=== PATIENT | male | born 1960 | race American Indian/Alaskan Native ===

== ENCOUNTER 2017-09-06 08:00 | Day surgery (SDC) | payer MEDICAID ==
[2017-09-06 08:37] VITALS: BMI 31.1
[2017-09-06] MEDS ORDERED: Propofol 10 mg/ml Inj (20 ML) ONE (09:35)
[2017-09-06 12:35] VITALS: TEMP 98.9; O2SAT 99
[2017-09-06 15:35] VITALS: BP 119/73; PULSE 73; RESP 16
== END 2017-09-06 11:40 | disposition home or self-care (01) ==
LOC: C.ENDO 08:00
PROVIDERS: ATTEND Internal Medicine Gastroenterology
DX: Z12.11 Encounter for screening for malignant neoplasm of colon (principal); K64.0 First degree hemorrhoids; I10 Essential (primary) hypertension; E78.5 Hyperlipidemia, unspecified; F17.210 Nicotine dependence, cigarettes, uncomplicated; Z80.3 Family history of malignant neoplasm of breast
CPT/HCPCS: 45378; J2704; J3010